=== PATIENT | female | born 1985 | race American Indian/Alaskan Native ===

== ENCOUNTER 2019-12-07 21:31 | Emergency (ER) | payer MEDICAID ==
[2019-12-07 22:40] VITALS: BP 115/69
--- NOTE | 2019-12-08 02:42 | Emergency Department Report ---
Chief Complaint: Skin Rash Stated Complaint: FACIAL AND LT EAR RASH Time Seen by Provider: 12/08/19 02:06 - HPI History of Present Illness: 34 y/o female present for a itchy rash on lower extremities and face for 4 days. Patient has not taking any medication to control the itching. Patient denies any offending agents. - Exam Vital Signs: Vital Signs 12/07/19 22:37 Temperature 97.8 F Pulse Rate 90 Respiratory 18 Rate Blood Pressure 115/69 O2 Sat by Pulse 99 Oximetry Physical Exam: Alert and oriented 3 no acute distress nontoxic in appearance Skin: Dry flaky rash on forehead and face now rash is erythematous on the arms, no blistering noted discharge nonerythematous MSE screening note: Focused history and physical exam performed. Due to findings the following was ordered: ED Disposition for MSE Clinical Impression: Rash and nonspecific skin eruption Disposition: MED SCREENING EXAM-LEFT Is pt being admited?: No Does the pt Need Aspirin: No Condition: Stable Instructions: Acute Rash (ED) Additional Instructions: Please use cream very sparingly on face for no more than 3-4 days. I highly recommend free to follow up with the silk screen printer machine. Prescriptions: Hydrocortisone [Hydrocortisone 2.5% OINT] 20 gm TP TID PRN #20 oint...g. PRN Reason: Rash Referrals: PRIMARY CAREMD [Referring] - 3-5 Days JYA RIBERA MD [Staff Physician] - 3-5 Days Forms: Accompanied Note
[2019-12-08] MEDS ORDERED: predniSONE 20 MG TAB PO ONE (03:23)
== END 2019-12-08 03:26 | disposition left against medical advice (07) ==
LOC: ED 21:31
DX: R21 Rash and other nonspecific skin eruption (principal); L29.9 Pruritus, unspecified; Z88.1 Allergy status to other antibiotic agents
CPT/HCPCS: 99282; J7512